=== PATIENT | female | born 1960 | race Caucasian/White ===

== ENCOUNTER 2017-11-27 13:34 | Emergency (ER) | payer OTHER ==
[~2017-11-27] VITALS: Ht 167.6 cm; Wt 79.4 kg
[2017-11-27] MEDS ORDERED: QVAR8.7 GM INH (13:58)
[2017-11-27] MEDS ORDERED: KETOCONAZOLE15 GM TOP (14:04)
[2017-11-27] MEDS ORDERED: VERTICALM25 MG PO (17:41)
--- NOTE | 2017-11-28 06:47 | EKG ---
[facility] [address] [facility] [place] [address] Signed Normal sinus rhythm Normal ECG No previous ECGs available Confirmed by BETTYE FORTE MD ([id number]) on 11/28/2017 6:46:55 AM Electronically Signed By: BETTYE FORTE MD 11/28/17 0647 PATIENT NAME: VANGIE HO Electrocardiogram DATE OF : 64 PHYSICIAN: BETTYE FORTE MD REPORT #: [id number] REPORT IS CONFIDENTIAL AND NOT TO BE RELEASED WITHOUT AUTHORIZATION
== END 2017-11-27 18:13 | disposition home or self-care (01) ==
LOC: ED 13:34
DX: B34.9 Viral infection, unspecified (principal); R42 Dizziness and giddiness; Z88.0 Allergy status to penicillin; Z88.2 Allergy status to sulfonamides; Z88.6 Allergy status to analgesic agent; Z79.899 Other long term (current) drug therapy
CPT/HCPCS: 71045; 80053; 85025; 93005; 93010; 96374; 99283; J2405

== ENCOUNTER 2019-11-13 08:01 | Emergency (ER) | payer OTHER ==
[~2019-11-13] VITALS: Ht 167.6 cm; Wt 81.5 kg
[~2019-11-13 08:01] MED LIST: KETOCONAZOLE15 GM TOP; QVAR8.7 GM INH; VERTICALM25 MG PO
[2019-11-13] MEDS ORDERED: CETIRIZINE HCL10 MG PO (08:20)
[2019-11-13] MEDS ORDERED: BUDESONIDE-FO10.2 G1 (08:21)
[2019-11-13] MEDS ORDERED: METHYLPREDNISOLO4 M1 PO (08:22)
[2019-11-13] MEDS ORDERED: COMBIVENT RESPIM4 GM INH (08:22)
[2019-11-13] MEDS ORDERED: ULTRAM50 MG PO (08:47)
== END 2019-11-13 09:45 | disposition home or self-care (01) ==
LOC: ED 08:01
DX: M53.3 Sacrococcygeal disorders, not elsewhere classified (principal); J45.909 Unspecified asthma, uncomplicated; Z88.0 Allergy status to penicillin; Z88.8 Allergy status to other drugs, medicaments and biological substances; Z88.2 Allergy status to sulfonamides; Z79.899 Other long term (current) drug therapy
CPT/HCPCS: 72110; 72202; 99283-25; J1100